=== PATIENT | female | born 1945 | race Caucasian/White ===

== ENCOUNTER → 2017-04-23 | Outpatient (CLI) | payer OTHER | LOC: BMCIMAGING 09:09 | PROVIDERS: ATTEND Physician Assistant | DX: M17.0 Bilateral primary osteoarthritis of knee (principal) ==

== ENCOUNTER 2017-11-29 06:02 | Observation (INO) | payer OTHER ==
--- NOTE | 2017-11-29 05:34 | POSTANESTH ---
Post Anesthetic Evaluation Cardiovascular Status: Normal, Stable Respiratory Status: Normal, Stable Level of Consciousness/Mental Status: Can Participate in Eval, Mildly Sleepy, Arousable Pain Control: Adequate, Prn Tx Ordered Nausea/Vomiting Control: Adequate, Prn Tx Ordered Complications Possibly Related to Anesthesia: None Noted (L AC block placed in PACU with spinal block still in effect. Pt comfortable throughout block placement.)
--- NOTE | 2017-11-29 05:37 | PDANEPAE ---
ANE History of Present Illness 71 yo female with L knee OA for L TKA. ANE Past Medical History - Cardiovascular History Hx Hypertension: Yes Hx Arrhythmias: No Hx Chest Pain: No Hx Coronary Artery / Peripheral Vascular Disease: No Hx CHF / Valvular Disease: No Hx Palpitations: No Cardiovascular History Comment: hypercholesterolemia - Pulmonary History Hx COPD: No Hx Asthma/Reactive Airway Disease: No Hx Recent Upper Respiratory Infection: No Hx Oxygen in Use at Home: Yes O2 in Use at Home (L/minute): 2LPM AT NIGHT Hx Sleep Apnea: Yes Sleep Apnea Screening Result - Last Documented: Negative - Neurologic History Hx Cerebrovascular Accident: No Hx Seizures: No Hx Dementia: No - Endocrine History Hypothyroid: Yes Hyperthyroid: No Obesity: mild Endocrine History Comment: BORDERLINE DIABETIC - no meds, just watches diet - Renal History Hx Renal Disorders: No - Liver History Hx Hepatic Disorders: No - Neurological & Psychiatric Hx Hx Neurological and Psychiatric Disorders: No - Cancer History Hx Cancer: No Cancer History Comment: HODGKINS DISEASE 1971 - Congenital Disorder History Hx Congenital Disorders: No - GI History Hx Gastrointestinal Disorders: No - Other Health History Other Health History: BILATERAL CATERACTS. SPINAL STENOSIS - Chronic Pain History Chronic Pain: No - Surgical History Prior Surgeries: R FOREARM ORIF 2004 ANE Review of Systems Review of systems is: negative Review of Systems: - Exercise capacity METS (RN): 4 METS - Systems Respiratory: Reports: other (flu 2 months ago with low O2 sats during that time , now recovered to baseline) ANE Patient History - Allergies Allergies/Adverse Reactions: Penicillins Allergy (Verified 11/09/17 11:09) Other-Enter Comments - Home Medications Home Medications: C/E/Zn/Cu/OM3/DHA/EPA/LUT/ZEAX [Preservision Areds 2 Softgel] 1 each PO BID 06/23 [Last Taken 11/22/17] Carvedilol [Coreg (*)] 6.25 mg PO DAILY@11/09/17 [Last Taken 11/29/17] Carvedilol [Coreg (*)] 12.5 mg PO DAILY@11/09/17 [Last Taken 11/28/17] Diclofenac Sodium 1% [Voltaren Gel (*)] 4 gm TP BID 11/09/17 [Last Taken ] Furosemide [Lasix 20 MG (*)] 20 - 60 mg PO DAILY 11/09/17 [Last Taken 11/28/17] Levothyroxine [Synthroid 100 mcg (*)] 100 mcg PO DAILY06 11/09/17 [Last Taken ] RX: Herbals/Supplements -Info Only 1 ea PO DAILY 11/09/17 [Last Taken 11/22/17] Ramipril [Altace 5mg (*)] 5 mg PO DAILY 11/09/17 [Last Taken 11/28/17] Simvastatin [Zocor] 40 mg PO HS 11/09/17 [Last Taken 11/28/17] - NPO status NPO Status: no food or drink >8 hours - Anes Hx Hx Anesthesia Complications (with details): admitted with hypoxemia after GA for FA ORIF in 2004 - Smoking Hx Smoking Status: Never smoked Marijuana use: No - Family Anes Hx Family Anes Hx: neg - N/A Family Hx Anesthesia Complications: NA ANE Labs/Vital Signs - Labs - CBC HGB: 14 HCT: 43 Platelet Count: 239 - Labs - BMP Potassium: 4.5 Glucose: 104 Creatinine: 0.7 - Vital Signs Vital Signs: reviewed preoperatively; see RN documention for details Height: 162.56 cm Weight: 85.275 kg ANE Physical Exam - Airway Neck exam: FROM (short TMD) Mallampati Score: Class 2 Mouth exam: normal dental/mouth exam - Pulmonary Pulmonary: clear to auscultation - Cardiovascular Cardiovascular: regular rate and rhythym - ASA Status ASA Status: II ANE Anesthesia Plan Anesthesia Plan: spinal Regional Anesthesia: adductor canal FNB
[~2017-11-29 06:02] MED LIST: ROPIVACAINE 0.2% 80 MG, EPINEPHrine 0.2 MG, KETOROLAC TROMETHAMINE 30 MG, morphINE 10 M... IU ONE; TRANEXAMIC ACID 1,000 MG in NS 100 ML IV ONE; VANCOMYCIN 1.25 GM in NS 250 ML IV ONE; VANCOMYCIN PHARMACY TO DOSE MISC ONE
[2017-11-29] MEDS ORDERED: FAMOTIDINE 20 MG TAB PO ONE (06:22)
[2017-11-29] MEDS ORDERED: ACETAMINOPHEN 325 MG TAB PO ONE (06:22)
[2017-11-29] MEDS ORDERED: LR 1,000 ML IV ONE (06:24)
--- NOTE | 2017-11-29 06:34 | PDIAF ---
- Diagnosis Diagnosis: left knee djd Code Status: Full Code - Medication Management Discharge Medications: Medications to Continue on Transfer C/E/Zn/Cu/OM3/DHA/EPA/LUT/ZEAX [Preservision Areds 2 Softgel] 1 each PO BID 06/23 [Last Taken Unknown] Carvedilol [Coreg (*)] 6.25 mg PO DAILY@11/09/17 [Last Taken Unknown] Carvedilol [Coreg (*)] 12.5 mg PO DAILY@18 11/09/17 [Last Taken Unknown] Diclofenac Sodium 1% [Voltaren Gel (*)] 4 gm TP BID 11/09/17 [Last Taken Unknown ] Furosemide [Lasix 20 MG (*)] 20 - 60 mg PO DAILY 11/09/17 [Last Taken Unknown] Herbals/Supplements -Info Only 1 ea PO DAILY 11/09/17 [Last Taken Unknown] Levothyroxine [Synthroid 100 mcg (*)] 100 mcg PO DAILY06 11/09/17 [Last Taken Unknown] Ramipril [Altace 5mg (*)] 5 mg PO DAILY 11/09/17 [Last Taken Unknown] Simvastatin [Zocor] 40 mg PO HS 11/09/17 [Last Taken Unknown] Discharge Medications: Refer to the Discharge Home Medication list for PRN reason. - Orders Services needed: Home Care, Physical Therapy Home Care Face to Face: I certify that this patient was under my care and that I had the required [id number] encounter meeting the encounter requirements on the discharge day. My findings support the fact that the patient is homebound as defined in Home Care Face to Face Continued: CMS Chapter 7 Medicare Benefits Manual 30.1.1 , The condition of the patient is such that there exists a normal inability to leave home and consequently, leaving home would require a considerable and taxing effort. Diet Recommendation: no restrictions on diet Diet Texture: Regular Texture Diet Additional Instructions: TOTAL JOINT ARTHROPLASTY DISCHARGE INSTRUCTIONS 1. Your surgeon follows the [facility] protocol for reducing your risk of DVT (blood clots) following surgery. Medication will be ordered to prevent blood clots. A sudden increase in calf pain and/or swelling could indicate a blood clot in your leg. If this occurs, please call your surgeon or his/her salon assistant. An ultrasound of the leg may be necessary to diagnose a blood clot. If you have conditions that make you a higher risk for blood clots, your surgeon may use more aggressive ways to prevent them. Notify your surgeon if you think you are a high risk for blood clots. 2. Wear your white surgical stockings (HARPAL hose) for 2 weeks. This decreases your swelling and may help prevent blood clots. It is ok to remove HARPAL hose at night time to give your legs a break. 3. Swelling and bruising in the surgical leg is common. If you feel that it is excessive, please notify your surgeon. 4. Elevate your surgical leg with the ankle above the hip several times every day. Please keep the leg straight when you elevate by putting pillows under your foot. Do not put pillows under your knee. This will make being able to fully straighten more difficult. This is uncomfortable, but try to do it as much as possible. 5. For total knee replacements use compressive wrap on your knee for 3-5 days after surgery, then you can discontinue it. 6. Use a walker or crutches for 1-2 weeks. Progress your weight-bearing as tolerated. You may start to use a cane when you feel stable and safe. 7. You will receive physical therapy instructions in the hospital. Continue those exercises at home. There are additional exercises in the total joint booklet you were given before surgery. Outpatient physical therapy will begin 7- 10 days after surgery. Please schedule this in advance. 8. Use ice on your knee at least 3-5 times every day for 30 minutes. This helps reduce pain and swelling. Also use it at night before falling asleep. 9. Leave your surgical dressing in place for 2 weeks. Your dressing is water resistant, but not waterproof. Cover it with Saran Wrap or [id number]-Ppkq before showering. You may shower as soon as you feel safe entering a shower. If you notice bleeding from your incision 2 or 3 days after surgery, please notify your surgeon. 10. Due to narcotics, decreased activity and altered diet, most patients experience constipation after surgery. Use qhxa-ktt-uxuzkhy stool softeners while you are on narcotics. 11. You may drive a car when you are comfortable bearing weight, have good muscular control of your leg and are off narcotics. This usually occurs 2-4 weeks after surgery, depending on which leg was operated on. 12. If there are questions not addressed here, please refer the [facility] book given for more information. If you still have questions, please contact your surgeon s office. 13. If you have a life-threatening emergency, please call 911 and go to the emergency room immediately. For non-life threatening emergencies, please call your physicians office for advice before going to the emergency room. - Follow Up Care Current Providers and Referrals: ROHIT SCHWARTZ [Other] Kwan Nielson MD [Medical Doctor] -
--- NOTE | 2017-11-29 06:34 | PDHPUP ---
History & Physical Update H&P update statement: This history and physical update is based on an assessment of the patient which was completed after admission or registration (within 24 hours), but prior to the surgery/procedure. H&P update: no change in patient's condition since H&P completed
[2017-11-29] MEDS ORDERED: THROMBIN (BOVINE) 5,000 UNIT VIAL TP ONE ×2 (08:27→08:58)
[2017-11-29] MEDS ORDERED: CALCIUM CHLORIDE 1 GM/10 ML INJ ONE (08:27)
[2017-11-29] MEDS ORDERED: ceFAZolin 1 GM/5 ML SYR ONE (08:28)
[2017-11-29] MEDS ORDERED: LIDOCAINE 2% 100 MG/5 ML SYR ONE ×2 (08:30→10:21)
[2017-11-29] MEDS ORDERED: fentaNYL 100 MCG/2 ML INJ ONE (08:30)
[2017-11-29] MEDS ORDERED: PROPOFOL/EMULSION 500 MG/50 ML BOTTLE IV ONE (08:30)
[2017-11-29] MEDS ORDERED: VANCOMYCIN 1.25 GM in D5W 250 ML IV ONE (09:00)
[2017-11-29] MEDS ORDERED: BUPIVACAINE/DEXTROSE 7.5MG/ML 2 ML SPINAL AMP SP ONE (10:21)
[2017-11-29] MEDS ORDERED: ROPIVACAINE HCL 150 MG/30 ML INJ ONE (10:21)
[2017-11-29] MEDS ORDERED: PROPOFOL 200 MG/20 ML VIAL ONE (10:35)
[2017-11-29] MEDS ORDERED: TEMAZEPAM 15 MG CAP PO PRN (10:51)
[2017-11-29] MEDS ORDERED: diphenhydrAMINE 25 MG CAP PO PRN (10:51)
[2017-11-29] MEDS ORDERED: LACTULOSE 20 GM/30 ML UDCUP PO PRN (10:51)
[2017-11-29] MEDS ORDERED: PROMETHAZINE HCL 25 MG/ML INJ IVP PRN (10:51)
[2017-11-29] MEDS ORDERED: METOCLOPRAMIDE 10 MG/2 ML VIAL IVP PRN (10:51)
[2017-11-29] MEDS ORDERED: POLYETHYLENE GLYCOL 3350 17 GM PKT PO PRN (10:51)
[2017-11-29] MEDS ORDERED: CYCLOBENZAPRINE 10 MG TAB PO PRN (10:51)
[2017-11-29] MEDS ORDERED: MAGNESIUM HYDROXIDE 30 ML UDCUP PO PRN (10:51)
[2017-11-29] MEDS ORDERED: ONDANSETRON DISINTEGRATING 4 MG TAB PO PRN (10:51)
[2017-11-29] MEDS ORDERED: PROMETHAZINE HCL 25 MG SUPPR PR PRN (10:51)
[2017-11-29] MEDS ORDERED: oxyCODONE IR 5 MG TAB PO PRN (10:51)
[2017-11-29] MEDS ORDERED: DIPHENOXYLATE/ATROPINE LOMOTIL 1 TAB PO PRN (10:51)
[2017-11-29] MEDS ORDERED: BISACODYL 10 MG SUPP PR PRN (10:51)
--- NOTE | 2017-11-29 10:51 | POSTOPPROG ---
Post Op Note Date of Operation: 11/29/17 Surgeon: Kwan Nielson [employer] Garage Mechanic: azalea Anesthesiologist: tom Anesthesia: Spinal Pre-op Diagnosis: left knee djd Post-op Diagnosis: same Indication: same Procedure: left tka Inf/Abcess present in the surg proc area at time of surgery?: No Depth: Deep Incisional (Fascial) EBL: 100-500
[2017-11-29] MEDS ORDERED: LR 1,000 ML IV SCH (11:00)
[2017-11-29] MEDS: ACETAMINOPHEN 325 MG TAB PO SCH ×2 (13:02→19:24)
[2017-11-29] MEDS ORDERED: ACETAMINOPHEN 500 MG TAB PO PRN (13:03)
[2017-11-29] MEDS ORDERED: ALBUTEROL 3 ML DEYVIAL IH PRN (13:03)
[2017-11-29] MEDS ORDERED: ONDANSETRON 4 MG/2 ML VIAL IVP PRN (13:03)
[2017-11-29] MEDS ORDERED: NALOXONE HCL 0.4 MG/ML INJ IVP PRN (13:03)
[2017-11-29] MEDS ORDERED: fentaNYL 100 MCG/2 ML INJ IVP PRN (13:03)
[2017-11-29] MEDS: ONDANSETRON 4 MG/2 ML VIAL IVP PRN ×2 (13:05→18:24)
[2017-11-29] MEDS ORDERED: CARVEDILOL 6.25 MG TAB PO SCH (18:00)
[2017-11-29] MEDS: BROMFENAC LEFTEYE SCH ×2 (18:19→21:39)
[2017-11-29] MEDS: PREDNISOLONE LEFTEYE SCH ×2 (18:19→21:39)
[2017-11-29] MEDS: GATIFLOXACIN LEFTEYE SCH ×2 (18:19→21:39)
[2017-11-29] MEDS ORDERED: TRANEXAMIC ACID 650 MG TAB PO SCH (18:30)
--- NOTE | 2017-11-29 19:39 | GOP ---
DATE OF OPERATION: 11/29/2017 SURGEON: Kwan Nielson MD ACID ETCH OPERATOR: Cruz Alex, POLICE COMMANDING OFFICER, [facility], who was medical necessity for the entirety of the case preo p. PREOPERATIVE DIAGNOSIS: Left knee degenerative joint disease. POSTOPERATIVE DIAGNOSIS: Left knee degenerative joint disease. PROCEDURE PERFORMED: Left total knee arthroplasty. FINDINGS: SPECIMENS: To pathology, the bony cuts. INDICATIONS: This is a 71-year-old woman with end-stage arthritis to her left knee. Clinical and ra diographic features are consistent with this. She has failed all attempts at conservative management . I have recommended operative intervention. I have outlined the surgical procedure, risks, benefit s, and alternatives. She wished to proceed. Written consent was signed and placed in patient's marylu t. DESCRIPTION OF PROCEDURE: The patient was identified in the preanesthesia area. The left knee clear ly demarcated as the operative site with indelible marker. She was given 2 g of Ancef intravenously en route to the operative suite. In the OR, spinal anesthetic was placed. She was positioned in the supine position and the left lower extremity sterilely prepped, and draped in usual fashion. John riafeliciano time-out procedure was carried out. The limb was examined with Esmarch bandage and the tourniq uet inflated to 275 mmHg. Standard anterior midline incision was made followed by medial parapatella r arthrotomy. Subperiosteal elevation was carried out to the mid coronal plane. There was gross tri compartmental changes. Decision was made to proceed with total knee replacement. Two pins were then placed across the medial to lateral femur followed by the femoral reference array and the femoral ch flavio point, separate percutaneous incision was made over the distal tibia and 2 pins were then placed in this area, with the tibial check point placed. The bony landmarks were entered in the computer in standard fashion. The knee was balanced through the flexion-extension arc. With manipulation of e software components, soft tissue release over the medial aspect and removal of medial osteophytes. Resections were made using the MAKOplasty robot for a size 3 femur and the tibial cut was made. Init ial trialing with a size 3 tibia and 3 x 11 mm thick polyethylene allowed full extension of the knee with stability through flexion extension arc. After the components had been opened, decision was mad e to change to a size 4 femoral component, by myself, given undersized with the 3. Therefore the [facility] was placed for a size 4 component and a 4 x 11 mm polyethylene trial was placed. All the trial co mponents were withdrawn. The knee was copiously irrigated. A size 4 tibia was then press-fit into p osition and confirmed to be fully seated. The size 3 femur was pressed into position and confirmed t o be seated. 4 x 11 mm polyethylene spacer was then placed and confirmed to be locked into the tibia l component. The knee would come to full extension. Flexion of 125 degrees with no instability thro ugh the flexion-extension arc. The patella was then everted, cut in a freehand cutting technique and drill holes were made for a size 32 mm metal-backed patella. This was then press-fit into position. The kneecap tracked centrally through the flexion-extension arc. The wound was copiously irrigated . The tissues injected with joint cocktail of ropivacaine, morphine, Toradol, and epinephrine. The medial parapatellar arthrotomy closed in 20 degrees of flexion with #1 Ethibond suture and the knee i nstilled with a platelet-rich plasma solution. Subcutaneous tissue was closed using 2-0 Monocryl and the skin with a zip line closure. A sterile pressure dressing was placed over the top of this. She was awakened, extubated, taken to recovery room in good stable condition. TOTAL TOURNIQUET TIME: 50 minutes. COMPLICATIONS: None. IMPLANTS: Simon Triathlon posterior stabilized femoral component size 3, Triathlon X3 tibial beari ng insert, size 4, 4 x 11 mm tibial bearing polyethylene and a 32 mm asymmetric Tritanium patella. DISPOSITION: To the recovery room, then the floor. She is weightbearing, range of motion as tolerat ed. /[id number]/MODL
[2017-11-29] MEDS ORDERED: ATORVASTATIN CALCIUM 20 MG TAB PO SCH (21:00)
[2017-11-29] MEDS: FAMOTIDINE 20 MG TAB PO SCH (21:36)
[2017-11-29] MEDS: ASPIRIN 325 MG TAB PO SCH (21:36)
[2017-11-29] MEDS: PRESERVISION AREDS2 FORMULA EYE VIT 1 EACH PO SCH (21:42)
[2017-11-29] MEDS: SENNOSIDES/DOCUSATE SODIUM TAB PO SCH (21:43)
[2017-11-30] MEDS: ACETAMINOPHEN 325 MG TAB PO SCH ×2 (00:18→05:39)
[2017-11-30] MEDS ORDERED: TRANEXAMIC ACID 650 MG TAB PO SCH (05:30)
[2017-11-30] MEDS ORDERED: LEVOTHYROXINE 100 MCG TAB PO SCH (06:00)
--- NOTE | 2017-11-30 07:09 | SOAPPROG ---
SOAP Progress Note Assessment/Plan: Assessment: s/p left tka Plan:d/c home wbat dvt precautions f/u at two weeks 11/30/17 07:07 Subjective: mild pain no cp or sob Objective: Vital Signs Temp Pulse Resp BP Pulse Ox 36.6 C 61 16 124/49 H 97 11/30/17 03:13 11/30/17 03:13 11/30/17 03:13 11/30/17 03:13 11/30/17 03:13 Laboratory Results 11/30/17 04:25 11/30/17 04:25 11/29/17 11/30/17 12/01/17 05:59 05:59 05:59 Intake Total 1025 Output Total 1750 Balance -725 dressing intact intact pf,df,ehl toes warm and pink laurence neg homans laurence xrays stable anatomic alignment, no fx or lucency ICD10 Worksheet Patient Problems: Problems Problem Status Onset Arthritis of knee Acute - ICD10 Problem Qualifiers (1) Arthritis of knee
--- NOTE | 2017-11-30 07:09 | PDIAF ---
- Diagnosis Diagnosis: left knee djd Code Status: Full Code - Medication Management Discharge Medications: Medications to Continue on Transfer C/E/Zn/Cu/OM3/DHA/EPA/LUT/ZEAX [Preservision Areds 2 Softgel] 1 each PO BID 06/23 [Last Taken 11/22/17] Carvedilol [Coreg (*)] 6.25 mg PO DAILY@11/09/17 [Last Taken 11/29/17] Carvedilol [Coreg (*)] 12.5 mg PO DAILY@11/09/17 [Last Taken 11/28/17] Diclofenac Sodium 1% [Voltaren Gel (*)] 4 gm TP BID 11/09/17 [Last Taken ] Furosemide [Lasix 20 MG (*)] 40 mg PO DAILY 11/09/17 [Last Taken 11/28/17] Herbals/Supplements -Info Only 1 ea PO DAILY 11/09/17 [Last Taken 11/22/17] Levothyroxine [Synthroid 100 mcg (*)] 100 mcg PO DAILY06 11/09/17 [Last Taken ] Ramipril [Altace 5mg (*)] 5 mg PO DAILY 11/09/17 [Last Taken 11/28/17] Simvastatin [Zocor] 40 mg PO HS 11/09/17 [Last Taken 11/28/17] Gatifloxacin/Prednis/Bromfenac [Pred 1%-Gati 0.5%-Bromf 0.075%] 1 drop LEFTEYE QID 11/29/17 [Last Taken Unknown] Prednisolone Acetate/Bromfenac [Prednisolone 1%-Bromfen 0.075%] 1 drop LEFTEYE BID 11/29/17 [Last Taken Unknown] Discharge Medications: Refer to the Discharge Home Medication list for PRN reason. - Orders Services needed: Home Care, Physical Therapy Home Care Face to Face: I certify that this patient was under my care and that I had the required [id number]-bs-iltg encounter meeting the encounter requirements on the discharge day. My findings support the fact that the patient is homebound as defined in Home Care Face to Face Continued: CMS Chapter 7 Medicare Benefits Manual 30.1.1 , The condition of the patient is such that there exists a normal inability to leave home and consequently, leaving home would require a considerable and taxing effort. Diet Recommendation: no restrictions on diet Diet Texture: Regular Texture Diet Additional Instructions: TOTAL JOINT ARTHROPLASTY DISCHARGE INSTRUCTIONS 1. Your surgeon follows the [facility] protocol for reducing your risk of DVT (blood clots) following surgery. Medication will be ordered to prevent blood clots. A sudden increase in calf pain and/or swelling could indicate a blood clot in your leg. If this occurs, please call your surgeon or his/her sales service assistant. An ultrasound of the leg may be necessary to diagnose a blood clot. If you have conditions that make you a higher risk for blood clots, your surgeon may use more aggressive ways to prevent them. Notify your surgeon if you think you are a high risk for blood clots. 2. Wear your white surgical stockings (HARPAL hose) for 2 weeks. This decreases your swelling and may help prevent blood clots. It is ok to remove HARPAL hose at night time to give your legs a break. 3. Swelling and bruising in the surgical leg is common. If you feel that it is excessive, please notify your surgeon. 4. Elevate your surgical leg with the ankle above the hip several times every day. Please keep the leg straight when you elevate by putting pillows under your foot. Do not put pillows under your knee. This will make being able to fully straighten more difficult. This is uncomfortable, but try to do it as much as possible. 5. For total knee replacements use compressive wrap on your knee for 3-5 days after surgery, then you can discontinue it. 6. Use a walker or crutches for 1-2 weeks. Progress your weight-bearing as tolerated. You may start to use a cane when you feel stable and safe. 7. You will receive physical therapy instructions in the hospital. Continue those exercises at home. There are additional exercises in the total joint booklet you were given before surgery. Outpatient physical therapy will begin 7- 10 days after surgery. Please schedule this in advance. 8. Use ice on your knee at least 3-5 times every day for 30 minutes. This helps reduce pain and swelling. Also use it at night before falling asleep. 9. Leave your surgical dressing in place for 2 weeks. Your dressing is water resistant, but not waterproof. Cover it with Saran Wrap or Pjfnh-t-Phza before showering. You may shower as soon as you feel safe entering a shower. If you notice bleeding from your incision 2 or 3 days after surgery, please notify your surgeon. 10. Due to narcotics, decreased activity and altered diet, most patients experience constipation after surgery. Use vmat-kco-xukkpks stool softeners while you are on narcotics. 11. You may drive a car when you are comfortable bearing weight, have good muscular control of your leg and are off narcotics. This usually occurs 2-4 weeks after surgery, depending on which leg was operated on. 12. If there are questions not addressed here, please refer the [facility] book given for more information. If you still have questions, please contact your surgeon s office. 13. If you have a life-threatening emergency, please call 911 and go to the emergency room immediately. For non-life threatening emergencies, please call your physicians office for advice before going to the emergency room. - Follow Up Care Current Providers and Referrals: ROHIT SCHWARTZ [Other] Kwan Nielson MD [Medical Doctor] -
--- NOTE | 2017-11-30 07:50 | GDS ---
ADMISSION DIAGNOSIS: Left knee degenerative joint disease. DISCHARGE DIAGNOSIS: Left knee degenerative joint disease. PROCEDURE: Left total knee arthroplasty. HISTORY OF PRESENT ILLNESS: The patient is a 71-year-old woman with end-stage arthritis to her left knee. She presents for elective total knee replacement. HOSPITAL COURSE: Patient was admitted overnight after uncomplicated total knee arthroplasty. She to lerated the procedure well. At time of discharge, she is tolerating an oral diet. Pain is well cont rolled on oral medicines. She is voiding without difficulty. Dressing is clean, dry, and intact. N o calf swelling or tenderness. X-rays are stable with anatomic alignment. No fracture or lucency. FOLLOWUP: In 2 weeks. Seek attention for increasing redness, swelling, drainage, discharge, or othe r focal complaints. DISCHARGE MEDICATIONS: Oxycodone 5 mg 1-2 every 4 hours p.r.n. pain, aspirin 325 mg p.o. daily. /[id number]/MODL
[2017-11-30] MEDS ORDERED: CARVEDILOL 6.25 MG TAB PO SCH (08:00)
[2017-11-30] MEDS: SENNOSIDES/DOCUSATE SODIUM TAB PO SCH (08:01)
[2017-11-30] MEDS: ASPIRIN 325 MG TAB PO SCH (08:02)
[2017-11-30] MEDS: FAMOTIDINE 20 MG TAB PO SCH (08:03)
[2017-11-30] MEDS: PRESERVISION AREDS2 FORMULA EYE VIT 1 EACH PO SCH (08:03)
[2017-11-30 08:07] VITALS: BP 110/48
[2017-11-30] MEDS ORDERED: FUROSEMIDE 20 MG TAB PO SCH (09:00)
[2017-11-30] MEDS ORDERED: PREDNISOLONE 1% LEFTEYE SCH (09:00)
[2017-11-30] MEDS ORDERED: RAMIPRIL 5 MG CAP PO SCH (09:00)
[2017-11-30] MEDS ORDERED: [UNRECOGNIZED DRUG - OTHER] LEFTEYE SCH (09:00)
--- NOTE | 2017-11-30 10:43 | ASMTCMCOM ---
CM Note CM Note Notes: Pt medically stable for d/c with [facility]. Orders sent in [employer]. Date Signed: 11/30/2017 10:42 AM Electronically Signed By:MAIKEL Mena
--- NOTE | 2017-11-30 10:43 | ASMTLACE ---
LACE Length of stay for Answers: 2 days current admission Acuity / Level of Answers: No Care: Did the patient have an inpatient admission? Comorbidities - select Answers: Other Notes: HTN; Hypothyroid; Borde rli all that apply ne DM; Hodgkins # of Emergency department Answers: 0 visits in the last 6 months Score: 3 Date Signed: 11/30/2017 10:41 AM Electronically Signed By:MAIKEL Mena
--- NOTE | 2017-11-30 13:45 | ASDISCHSUM ---
Discharge Information Plan Status:Home with Home Health Medically Cleared to Leave: Discharge Date:11/30/2017 11:04 AM CM D/C Disposition: ADT D/C Disposition:Home Health Service Projected Discharge Date:11/30/2017 11:00 AM Transportation at D/C: Discharge Delay Reason: Follow-Up Date:11/30/2017 11:00 AM Discharge Slot: Final Diagnosis: Placement Information Referral Type:*Home Health Care Services Referral ID:[id number] Provider Name:[facility] [place] Address 1:[address] [place] [address] Address 2: City:[place] Selection Factors: State:[place] Patient Contact Information Contact Name:PERNELL Relationship: Address:[address] City:[facility] Phone: State/[facility] Code:[place] [address] Email: Financial Information Financial Class:Medicare Primary Plan Desc:MEDICARE OUTPATIENT Primary Plan Number:[id number] Secondary Plan Desc:[employer] Secondary Plan Number:[id number] Assessment Information LACE LACE Length of stay for Answers: 2 days current admission Acuity / Level of Answers: No Care: Did the patient have an inpatient admission? Comorbidities - select Answers: Other Notes: HTN; Hypothyroid; Borde rli all that apply ne DM; Hodgkins # of Emergency department Answers: 0 visits in the last 6 months Score: 3 Date Signed: 11/30/2017 10:41 AM Electronically Signed By:MAIKEL Mena ADELE CM Progress Note CM Note CM Note Notes: Pt medically stable for d/c with [facility]. Orders sent in [employer]. Date Signed: 11/30/2017 10:42 AM Electronically Signed By:MAIKEL Mena Intervention Information Intervention Type:*Incorrect Registration Date of Service:11/29/2017 12:38 PM Patient Type:Observation Staff Member:Julissa Russell Hours: Discipline: Severity: Comment:
== END 2017-11-30 11:04 | disposition home health service (06) ==
LOC: F3N 06:02 → INTOOBSV 06:02 → F3N 12:12
PROVIDERS: ADMIT Orthopaedic Surgery; ATTEND Orthopaedic Surgery
PROC: 0SRD0JZ Replacement of Left Knee Joint with Synthetic Substitute, Open Approach (ICD-10-PCS; principal; 2017-11-29 08:45)
DX: M17.12 Unilateral primary osteoarthritis, left knee (principal); M65.311 Trigger thumb, right thumb; I10 Essential (primary) hypertension; E78.00 Pure hypercholesterolemia, unspecified
CPT/HCPCS: 27447; 73560; 88311; 97110; 97116; 97161; 97165; C1776; G8978; G8979; G8980; G8987; G8988; G8989; J0171; J0690; J1885; J2001; J2270; J2405; J2704; J2795; J3010; J3370

== ENCOUNTER → 2018-01-13 | Outpatient (CLI) | payer OTHER | LOC: BMCIMAGING 09:53 | PROVIDERS: ATTEND Physician Assistant | DX: Z47.1 Aftercare following joint replacement surgery (principal); Z96.652 Presence of left artificial knee joint ==

== ENCOUNTER → 2018-02-24 | Outpatient (CLI) | payer OTHER | LOC: BMCIMAGING 09:57 | PROVIDERS: ATTEND Orthopaedic Surgery | DX: Z47.1 Aftercare following joint replacement surgery (principal); Z96.652 Presence of left artificial knee joint ==

== ENCOUNTER → 2018-05-25 | Outpatient (CLI) | payer OTHER | LOC: BMCIMAGING 09:52 → EDSTATUS 09:54 | PROVIDERS: ATTEND Orthopaedic Surgery | DX: Z47.1 Aftercare following joint replacement surgery (principal); Z96.652 Presence of left artificial knee joint ==

== ENCOUNTER → 2018-06-29 | Outpatient (CLI) | payer OTHER | DX: Z47.1 Aftercare following joint replacement surgery (principal); Z96.652 Presence of left artificial knee joint; M17.11 Unilateral primary osteoarthritis, right knee ==

== ENCOUNTER 2018-08-22 06:10 | Inpatient (IN) | payer OTHER | END 2018-08-23 14:51 | disposition home health service (06) | LOC: F3N 06:10 ==